=== PATIENT | female | born 1980 | race Caucasian/White ===

== ENCOUNTER 2022-08-30 16:09 | Emergency (ER) | payer BC ==
[2022-08-30 17:45] LABS: SARS-CoV-2 NAA Rapid Test Not Detected (NotDetected)
== END 2022-08-30 18:05 | disposition home or self-care (01) ==
LOC: CSHERS 16:09
DX: J40 Bronchitis, not specified as acute or chronic (principal); Z20.822 Contact with and (suspected) exposure to COVID-19
CPT/HCPCS: 71046

== ENCOUNTER → 2022-12-19 | Day surgery (SDC) | payer BC ==
[~2022-12-19] MED LIST: Methacholine Chloride KIT IH SCH; Sodium Chloride For Inhalation 0.9% 3 ML NEB NEB SCH
== END ==
LOC: EDSTATUS 12-16 09:30 → CSHCP 07:40
PROVIDERS: ATTEND Internal Medicine Critical Care Medicine
DX: J45.902 Unspecified asthma with status asthmaticus (principal)
CPT/HCPCS: 94060; 94070; 94760; J7611; J7674